=== PATIENT | male | born 1990 | race Caucasian/White ===

== ENCOUNTER 2019-08-23 12:43 | Emergency (ER) | payer MEDICAID, OTHER ==
[~2019-08-23] VITALS: Ht 180.3 cm; Wt 65.8 kg
[2019-08-23 13:14] VITALS: BP 136/98
[2019-08-23] MEDS ORDERED: IBUPROFEN 600 MG TABLET PO ONE ×2 (14:25→14:30)
--- NOTE | 2019-08-23 14:30 | NUR ---
MEDICATED ORDERED, ALISSA JULES CALLED FOR HOMELESS D/C
--- NOTE | 2019-08-23 15:23 | NUR ---
Social service consult requested by Dr. Amin for homelessness. Pt. is a 28 year old male who came to [facility] complaining of a toothache. DAISY met with the pt. bedside. Pt. is alert and oriented x 4. Pt. appears disheveled and dirty. Pt. states he has been homeless for the past 4 years. Pt. moved from [place], [place] and for some adventure. Pt. receives food stamps. SW encouraged pt. to connect with [facility] on [address] SW gave pt. the information. Pt. appears to be malingering stating he wants medication specifically Ativan. Pt. was given Moltrin for his toothache. Pt. says he is suicidal but does not have a plan. Pt. states, "I will leave if you can get me my insurance number." SW provided pt.with his [employer] insurance number, a sandwich, juice and TAP card. Pt. was offered assisted placement, however pt. declined. Pt. did accept the following resources: [facility] located at [address] [facility] ; [facility], [address] [place] [address], [place] ; [facility], [address] [facility] ; [facility] Homeless Resource Directory which includes food stamps, transitional housing, showers and hot meals etc; Mental Health clinics such as [facility] ; [facility] ; Health clinics;[facility] and Alcohol treatment centers such as [facility], ; [facility]stance [facility] and [facility] . Homeless patient waiver form was signed by the pt. and placed in pt's chart. Dr. Amin has been updated with pt's discharge plan.
== END 2019-08-23 15:32 | disposition home or self-care (01) ==
LOC: ER 12:47
DX: K08.89 Other specified disorders of teeth and supporting structures (principal); Z59.0 Homelessness